=== PATIENT | male | born 1955 | race Caucasian/White ===

== ENCOUNTER 2017-12-24 00:20 | Emergency (ER) | payer SELFPAY ==
[~2017-12-24] VITALS: Ht 175.3 cm; Wt 76.0 kg
[2017-12-24 02:47] LABS: CHLORIDE 104 mEq/L (98-107)
[2017-12-24 03:16] LABS: BASOPHILS % 0.6 % (0.0-2.0); EOSINOPHILS % 0.3 % (0.0-5.0); HEMATOCRIT. 41.5 % (42.0-52.0); HEMOGLOBIN. 14.3 g/dL (14.0-18.0); LYMPHOCYTES % 22.3 % (20.0-50.0); MEAN CORPUSCULAR HEMOGLOBIN 31.2 pg (28.0-32.0); MEAN CORPUSCULAR VOLUME 90.3 fL (80.0-94.0); MEAN PLATELET VOLUME 8.8 fl (7.4-10.4); MONOCYTES % 5.5 % (2.0-8.0); NEUTROPHILS % 71.3 % (40.0-76.0); PLATELET 226 x1000/uL (130-400); RED CELL DISTRIBUTION WIDTH 12.7 % (11.6-14.6)
[2017-12-24 03:29] LABS: CLARITY URINE CLEAR (CLEAR); KETONES URINE NEGATIVE (NEGATIVE); LEUKOCYTE ESTERASE URINE NEGATIVE (NEGATIVE); NITRITE URINE NEGATIVE (NEGATIVE); OCCULT BLOOD URINE TRACE (NEGATIVE); PH URINE 6.5 (4.5-8.0); PROTEIN URINE NEGATIVE (NEGATIVE); SPECIFIC GRAVITY URINE 1.009 (1.005-1.030)
[2017-12-24 03:44] LABS: COLOR URINE STRAW (YELLOW)
[2017-12-24 05:14] VITALS: BP 110/69
== END 2017-12-24 05:19 | disposition home or self-care (01) ==
LOC: ER 01:18
DX: N40.1 Benign prostatic hyperplasia with lower urinary tract symptoms (principal); F17.200 Nicotine dependence, unspecified, uncomplicated; R33.8 Other retention of urine
CPT/HCPCS: 36415; 51702; 76770; 80053; 81003; 85025; 99285; Z7610; A4315

== ENCOUNTER 2017-12-25 10:10 | Emergency (ER) | payer SELFPAY ==
[~2017-12-25] VITALS: Ht 175.3 cm; Wt 78.0 kg
[2017-12-25] MEDS ORDERED: PANTOPRAZOLE SODIUM 40 MG/VIAL IV STA (11:33)
[2017-12-25] MEDS ORDERED: SODIUM CHLORIDE 0.9% 1,000 ML IV ONE (11:33)
[2017-12-25 11:55] LABS: BASOPHILS % 0.6 % (0.0-2.0); EOSINOPHILS % 0.6 % (0.0-5.0); HEMOGLOBIN. 14.6 g/dL (14.0-18.0); LYMPHOCYTES % 32.3 % (20.0-50.0); MEAN CORPUSCULAR HEMOGLOBIN 30.9 pg (28.0-32.0); MEAN CORPUSCULAR VOLUME 90.8 fL (80.0-94.0); MEAN PLATELET VOLUME 8.8 fl (7.4-10.4); MONOCYTES % 6.9 % (2.0-8.0); NEUTROPHILS % 59.6 % (40.0-76.0); PLATELET 231 x1000/uL (130-400); RED BLOOD CELL COUNT 4.74 mill/uL (4.7-6.1); RED CELL DISTRIBUTION WIDTH 12.7 % (11.6-14.6)
[2017-12-25 11:59] LABS: PROTHROMBIN TIME 10.8 sec (9.4-11.6)
[2017-12-25 12:03] LABS: CHLORIDE 105 mEq/L (98-107)
[2017-12-25 12:11] LABS: ETHANOL BLOOD < 10 mg/dL
[2017-12-25 12:54] LABS: CLARITY URINE CLEAR (CLEAR); COLOR URINE YELLOW (YELLOW); KETONES URINE NEGATIVE (NEGATIVE); LEUKOCYTE ESTERASE URINE TRACE (NEGATIVE); NITRITE URINE NEGATIVE (NEGATIVE); OCCULT BLOOD URINE 2+ (NEGATIVE); PROTEIN URINE NEGATIVE (NEGATIVE); SPECIFIC GRAVITY URINE 1.011 (1.005-1.030); UROBILINOGEN URINE 0.2 E.U./dL (0.2-1.0)
[2017-12-25 13:39] LABS: *AMPHETAMINES SCREEN URINE NEGATIVE (NEGATIVE); *BARBITURATES SCREEN URINE NEGATIVE (NEGATIVE); *BENZODIAZEPINES SCREEN URINE NEGATIVE (NEGATIVE); *COCAINE SCREEN URINE NEGATIVE (NEGATIVE)
[2017-12-25 13:40] LABS: CANNABINOID URINE SCREEN NEGATIVE (NEGATIVE); METHADONE URINE SCREEN NEGATIVE (NEGATIVE); OPIATES URINE SCREEN NEGATIVE (NEGATIVE); PHENCYCLIDINE URINE SCREEN NEGATIVE (NEGATIVE)
[2017-12-25 14:38] VITALS: BP 119/65
== END 2017-12-25 14:39 | disposition home or self-care (01) ==
LOC: CANBEDREQ 10:39 → ER 13:11 → CANRESERV 14:32 → ENRESERV 14:32 → ER 14:39 → CANBEDREQ 14:44
DX: Z46.6 Encounter for fitting and adjustment of urinary device (principal); N40.1 Benign prostatic hyperplasia with lower urinary tract symptoms; R33.8 Other retention of urine; R00.1 Bradycardia, unspecified; F17.200 Nicotine dependence, unspecified, uncomplicated
CPT/HCPCS: 36415; 51702; 80053; 80305; 81003; 83690; 83880; 84484; 85025; 85610; 93005; 99285; G0482; Z7610; J7030; A4315